=== PATIENT | female | born 2000 | race Caucasian/White ===

== ENCOUNTER 2023-04-12 09:25 | Outpatient (CLI) | payer BC, SELFPAY ==
--- NOTE | ~2023-04-12 | MR_ITS ---
EXAMINATION: MR foot LT wo con DATE: 04/12/2023 10:15 INDICATION: Left foot pain. Sesamoiditis. TECHNIQUE: Magnetic resonance imaging (MRI) of the left foot was performed without intravenous contra st. COMPARISON: None FINDINGS: Bone alignment is normal. No fracture. There is edema-like marrow signal intensity in the g reat toe lateral sesamoid. Joint spaces are normal. There are small effusions versus synovitis of fir st-fourth metatarsophalangeal joints. Lisfranc ligament is normal. The flexor tendons are normal. The extensor tendons are normal. There is mild intermetatarsal bursitis between the first-fourth metatar sals. There is a 6 mm ganglion cyst dorsolateral to fourth and fifth tarsometatarsal joints. There is a 6 mm ganglion cyst plantar to fifth metatarsophalangeal joint. IMPRESSION: 1. Edema-like marrow signal intensity in the great toe lateral sesamoid, which may be seen with sesam oiditis, sesamoid osteonecrosis or osteoarthritis. 2. Small effusions versus synovitis of first-fourth metatarsophalangeal joints. 3. Mild intermetatarsal bursitis between the first-fourth metatarsals. 4. 6 mm ganglion cyst dorsolateral to fourth and fifth tarsometatarsal joints. 5. 6 mm ganglion cyst plantar to fifth metatarsophalangeal joint. Reviewed, dictated and finalized at location A. IMPRESSION: 1. Edema-like marrow signal intensity in the great toe lateral sesamoid, which may be seen with sesamoiditis, sesamoid osteonecrosis or osteoarthritis. 2. Small effusions versus synovitis of first-fourth metatarsophalangeal joints. 3. Mild intermetatarsal bursitis between the first-fourth metatarsals. 4. 6 mm ganglion cyst dorsolateral to fourth and fifth tarsometatarsal joints. 5. 6 mm ganglion cyst plantar to fifth metatarsophalangeal joint.
== END 2023-04-12 09:26 ==
DX: M71.572 Other bursitis, not elsewhere classified, left ankle and foot (principal); M67.472 Ganglion, left ankle and foot
CPT/HCPCS: 73718